=== PATIENT | female | born 1995 | race Caucasian/White ===

== ENCOUNTER 2023-07-22 08:14 | Outpatient (REF) | payer OTHER, SELFPAY ==
--- NOTE | ~2023-07-22 | XR_ITS ---
EXAMINATION: XR HAND, RIGHT CLINICAL INFORMATION: Pain. COMPARISON: None available. TECHNIQUE: PA, lateral, and oblique views of the right hand. FINDINGS: There is a mildly displaced fracture of the proximal aspect of the fourth distal phalanx. No definite intra-articular extension is identified.. Surrounding soft tissue swelling. The remainder of the bones appear unremarkable. Joint space is maintained. XR/XR hand RT min 3V IMPRESSION: Mildly displaced fracture of the proximal aspect of the fourth distal phalanx.
== END 2023-07-22 08:15 | disposition home or self-care (01) ==
LOC: HO.HOSX 08:14
PROVIDERS: Visit Provider Physician Assistant
DX: S62.664B Nondisplaced fracture of distal phalanx of right ring finger, initial encounter for open fracture (principal)
CPT/HCPCS: 73130; 99202

== ENCOUNTER 2023-07-22 10:22 | Outpatient (AMB) | payer OTHER, SELFPAY ==
--- NOTE | 2023-07-22 10:43 | A.OFFVIS_ITS ---
Intake Vital Signs 07/22/23 10:46 Height 5 ft 3 in Weight 160 lb BMI 28.3 Handedness Right Intake Visit Reasons: fc-open fx of rt fourth finger Intake Note: Missy is a 28 year old right hand dominant female who presents today for a evaluation of her right ring finger fx, DOI 07/15/23. Patient reports she was at work and she got her finger stuck in a conveyor belt. She states having constant stabbing pain. Hx of taking NSAIDs and they are not providing her with any relief. Patient reports having ongoing numbness with a stabbing sensation since the injury. Allergies Sulfa (Sulfonamide Antibiotics) [SULFA (SULFONAMIDE ANTIBIOTICS)] Allergy (Unknown, Verified 07/22/23 10:46) hives HPI fc-open fx of rt fourth finger HPI Details 28-year-old right hand dominant female nini dove presents in the office today, as a new patient, for an evaluation of the right 4th digit. Patient sustained an injury while at work on 07/15/2023. She was seen in the [facility] ED where her right 4th digit was splinted. While in the office today the patient reports her finger got stuck in the convveyor belt on 07/15/2023. She reports a constant stabbing pain. She denies relief from NSAIDs. She also claims to having ongoing numbness in the right 4th digit. Patient currently works for [employer]. 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 No ecchymosis, erythema, or edema. Able to perform full finger flexion, extension, abduction, adduction, finger cross, okay sign, and thumbs up without deficit. Able to make a closed fist. Sensation intact. Capillary refill is brisk. Radial pulse intact. Office Procedures Fracture Care Fracture Billing Code: Fracture Billing Code Assessment & Plan Assessment & Plan (1) Fracture of distal phalanx of right ring finger: Onset Date: ~07/15/23 Code(s): S62.634A - Displaced fracture of distal phalanx of right ring finger, initial encounter for closed fracture Qualifiers: Encounter type: initial encounter Fracture alignment: nondisplaced Fracture type: open Qualified Code(s): S62.664B - Nondisplaced fracture of distal phalanx of right ring finger, initial encounter for open fracture (2) Laceration of right ring finger: Onset Date: ~07/15/23 Code(s): S61.214A - Laceration without foreign body of right ring finger without damage to nail, initial encounter Qualifiers: Damage to nail status: unspecified Encounter type: initial encounter Foreign body presence: unspecified Qualified Code(s): S61.214A - Laceration without foreign body of right ring finger without damage to nail, initial encounter Plan Ms. Gant is a 28-year-old right hand dominant female who presents in the office today, as a new patient, for an evaluation of the right 4th digit. Ciro melendrez sustained an injury while at work on 07/15/2023. She was seen in the [facility] ED where her right 4th digit was splinted. While in the office today the patient reports her finger got stuck in the conveyor belt on 07/15/2023. She reports a constant stabbing pain. She denies relief from NSAIDs. She also claims to having ongoing numbness in the right 4th digit. Patient currently works for [employer]. Patient will perform daily dressing changes for the right ring finger with xeroform, gauze, kerramax and coban. She was educated not to get the area wet. She will continue with her oral antibiotic. Follow up will be on Tuesday07/26/[address] Fatima in the office, or sooner if needed. X-rays of the right hand which were obtained while in the office today and were reviewed by me, Stephanie Cook PA-C, revealed a fracture of the right ring finger distal phalanx. Orders: Orders XR hand RT min 3V 07/22/23 M79.643 - Pain in unspecified hand Patient Instructions: Scribed by Amrita Ryder medical and scientific illustrator, for Stephanie Joycecolt STEIN on 07/22/2023 at 10:27 am, EST. Coding Level of Care Code New Pt Level 4 (68721) Diagnoses Open nondisplaced fracture of distal phalanx of right ring finger, initial encounter S62.664B Encounter type: initial encounter Fracture alignment: nondisplaced Fracture type: open Laceration of right ring finger, foreign body presence unspecified, nail damage status unspecified, initial encounter S61.214A Damage to nail status: unspecified Encounter type: initial encounter Foreign body presence: unspecified CPT Codes Fracture Care - Fracture Billing Code: Fracture Billing Code ([id number])
[2023-07-22 10:46] VITALS: BMI 28.3
== END 2023-07-22 12:06 | disposition home or self-care (01) ==
PROVIDERS: PCP Pediatrics; Visit Provider Physician Assistant
DX: S62.664B Nondisplaced fracture of distal phalanx of right ring finger, initial encounter for open fracture (principal); Z04.2 Encounter for examination and observation following work accident
CPT/HCPCS: 99204

== ENCOUNTER 2023-07-26 14:35 | Outpatient (AMB) | payer OTHER, SELFPAY ==
--- NOTE | 2023-07-26 14:40 | A.OFFVIS_ITS ---
Intake Vital Signs 07/26/23 14:46 Height 5 ft 3 in Weight 160 lb BMI 28.3 Intake Visit Reasons: ov-open fx of rt fourth finger Intake Note: Missy is a 28 year old right hand dominant female who presents today for a follow up of her right distal ring finger fx, DOI 07/15/23. Patient reports still having on going pain. Allergies Sulfa (Sulfonamide Antibiotics) [SULFA (SULFONAMIDE ANTIBIOTICS)] Allergy (Unknown, Verified 07/28/23 07:28) hives HPI ov-open fx of rt fourth finger HPI Details 28-year-old right hand dominant female nini dove presents in the office today for a wound check and follow up of the right 4th digit distal phalanx fracture and laceration, which occurred on 07/15/2023. I last saw the patient in the office on 07/22/2023, at that time she instructed to perform daily dressing changes. She was also instructed to continue the oral antibiotics given to her at the ED. While in the office today the patient reports she is still having pain. Patient has two more dose of antibiotics. Patient has an allergy history, as follows: -Sulfa; hives Patient is not currently taking any medication. Patient has no significant medical history. Patient has no known surgical history. 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 -Substance use: Marijuana use [facility] Medical History (Updated 07/28/23 @ 07:53 by Paula Jensen RN) No pertinent past medical history Surgical History (Updated 07/28/23 @ 07:28 by Paula Jensen RN) Hx of section Social History (Updated 07/28/23 @ 09:24 by Lila Vaughan MD) Alcohol intake: never Patient Tobacco Use Status: Never used Tobacco Use of substances other than those prescribed or required for medical reasons: Yes Substance Use Type: Marijuana Substance Use Type Other:: Last use 2 days ago Substance Use Frequency: Occasionally Are you DNR?: No Advance Directives: No Advance Directives Information Provided: Yes Current occupational status: employed 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 Review of Systems Const All systems reviewed & are unremarkable except as noted in HPI and below Physical Exam Vital Signs: BMI result Body Mass Index 28.3 Const General: cooperative, healthy appearing and no acute distress Resp Effort & Inspection: normal respiratory effort and able to speak in complete sentences Cardio Rate: regular rate Peripheral pulses: Peripheral pulses 2+ throughout GI Palpation (GI): Soft to palpation Skin Lesions: no lesions Rashes: no rashes Assessment & Plan Assessment & Plan (1) Fracture of distal phalanx of right ring finger: Onset Date: ~07/15/23 Code(s): S62.634A - Displaced fracture of distal phalanx of right ring finger, initial encounter for closed fracture Qualifiers: Encounter type: subsequent encounter Fracture alignment: nondisplaced Fracture healing: with nonunion Fracture type: open Qualified Code(s): S62.664K - Nondisplaced fracture of distal phalanx of right ring finger, subsequent encounter for fracture with nonunion (2) Laceration of right ring finger: Onset Date: ~07/15/23 Code(s): S61.214A - Laceration without foreign body of right ring finger without damage to nail, initial encounter Qualifiers: Damage to nail status: with damage Encounter type: subsequent encounter Foreign body presence: without foreign body Qualified Code(s): S61.314D - Laceration without foreign body of right ring finger with damage to nail, subsequent encounter Plan Ms. Gant is a 28-year-old right hand dominant female who presents in the office today for a wound check and follow up of the right 4th digit distal phalanx fracture and laceration, which occurred on 07/15/2023. I last saw the patient in the office on 07/22/2023, at that time she instructed to perform daily dressing changes. She was also instructed to continue the oral antibiotics given to her at the ED. While in the office today the patient reports she is still having pain. Patient has two more dose of antibiotics. Patient has an allergy history, as follows: -Sulfa; hives Patient is not currently taking any medication. Patient has no significant medical history. Patient has no known surgical history. 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 Fatima was available to see the patient with me while in the office today and a collaborative treatment plan was made. I discussed in detail the procedure and what to expect pre and post operatively. We discussed the risks, benefits and alternatives to the surgery as well as the rehabilitation course. The risks; which include, but are not limited to infection, bleeding, nerve injury, ongoing pain, swelling, and stiffness, perioperative risk of injury to bones and soft tissues, and blood clots. I have answered all questions and with their understanding they have consented to move forward with a right ring finger removal of nail plate, repair of nail bed, and possible open reduction internal fixation of distal phalanx to be performed by Dr. Moira Fatima. Recommended for the patient to use editable in place of inhaling marijuana. New bandages were placed over the fractured finger. A metal finger splint, off the shelf, was placed on the patient today. Her information was given to the surgical schedulers with a tentative date of 07/28/2023. Follow up will be at the post operative appointment, or sooner if needed. Patient Instructions: Scribed by Amrita Ryder medical social consultant, for Stephanie Cook PA-C on 07/26/2023 at 2:45 pm, EST. Coding Level of Care Code Est Pt Level 4 (89176) Global (34578) Diagnoses Open nondisplaced fracture of distal phalanx of right ring finger with nonunion, subsequent encounter S62.664K Encounter type: subsequent encounter Fracture alignment: nondisplaced Fracture healing: with nonunion Fracture type: open Laceration of right ring finger without foreign body with damage to nail, subsequent encounter S61.314D Damage to nail status: with damage Encounter type: subsequent encounter Foreign body presence: without foreign body
[2023-07-26 14:46] VITALS: BMI 28.3
== END 2023-07-26 15:22 | disposition home or self-care (01) ==
PROVIDERS: PCP Pediatrics; Visit Provider Physician Assistant
DX: S62.66 Nondisplaced fracture of distal phalanx of finger (principal); S61.314D Laceration without foreign body of right ring finger with damage to nail, subsequent encounter
CPT/HCPCS: 99214

== ENCOUNTER → 2023-07-26 14:35 | Outpatient (BNVA) | payer OTHER, SELFPAY | PROVIDERS: PCP Pediatrics; Visit Provider Physician Assistant | DX: S62.66 Nondisplaced fracture of distal phalanx of finger (principal); S61.314D Laceration without foreign body of right ring finger with damage to nail, subsequent encounter | CPT/HCPCS: 99212 ==

== ENCOUNTER 2023-07-28 07:15 | Day surgery (SDC) | payer OTHER, SELFPAY ==
[2023-07-28] VITALS (7 sets, daily range): BP systolic 93–112; BP diastolic 54–76; PULSE 53–71; RESP 15–20; TEMP 36.1–36.6; O2SAT 98–100; BMI 28.4
--- NOTE | ~2023-07-28 | FL_ITS ---
EXAMINATION: XR FLUOROSCOPY WITH IMAGES CLINICAL INFORMATION: ORIF fracture of the right fourth distal phalanx. COMPARISON: Radiographs dated 07/22/2023. TECHNIQUE: Fluoroscopy Supervised By: Dr. Moira Fatima. Fluoroscopy Time: 24.32 seconds. Cumulative Dose: 0.4778 mGy. DAP: 0.0289 Gycm2. Images: 4. FINDINGS: The submitted images show a fixator pin transfixing a fracture of the base of the right fourth distal phalanx. There is improvement in bony alignment. The fixator pin traverses the fourth distal interphalangeal joint. FL/FL guidance in OR IMPRESSION: Intraoperative fluoroscopic guidance is provided during ORIF of the right fourth distal phalanx. Please see the patient's Operative Report for full procedural details.
[2023-07-28 07:35] LABS: UPreg QC Valid YES; Urine Pregnancy NEGATIVE (NEGATIVE)
[2023-07-28] MEDS: Lactated Ringers 1,000 ML 50 ML IVCONT (07:58)
--- NOTE | 2023-07-28 07:58 | MHC.SHP ---
Pre-Procedural Eval Section A - 24 Hr Update-Section A only Date of Service: 07/28/23 The patient is an INPATIENT: No Changes since office visit: No Cold of Flu in the past 2 weeks, No New Medical Problems, No Changes in Medication and No Patient answered all questions The patient has been examined within 24 hours of the surgical procedure. The History & Physical has been completed within 30 days and I have reviewed it.: Yes Section B - Complete if H&P > 30 days Chief Complaint: nondisplaced fx distal,laceration w/ foreign body Details of Present Illness: Right ring finger fracture with nail bed injury Allergies: Allergies Allergy/AdvReac Type Severity Reaction Status Date / Time Sulfa (Sulfonamide Allergy Unknown hives Verified 07/28/23 07:28 Antibiotics) [SULFA (SULFONAMIDE ANTIBIOTICS)] Plan I have reviewed the history and physical and performed a pertinent physical examination on my patient. No changes have occurred unless specified. Time Spent With Patient Time: Total time managing care of this patient today ____ minutes.
--- NOTE | 2023-07-28 07:59 | P.OP_ITS ---
Operative Note Operative Note Date of Service: 07/28/23 Narrative: Operative Note Narrative: Preop diagnosis: 1. Right ring finger open distal phalanx fracture with displacement 2. Right ring finger nail bed injury Postop diagnosis: Same Procedure: 1. Right ring finger open reduction internal fixation 2. Right ring finger I and D of open distal phalanx fracture 3. Right ring finger nail plate removal 4. . Right ring finger nail bed repair Surgeon: Moira Fatima MD Anesthesia: General Anesthesia Findings: Open distal phalanx fracture at the proximal aspect of the distal phalanx. Anatomically this was essentially at the level of the eponychial fold. She had an acrylic nail attached to the nail, and the nail itself was pulled out from the eponychial fold, thus holding the fracture open and displaced. Implants: 0.045 K-wire x1 Tourniquet time: 0 minutes EBL: 5.0 ml Specimen: None Drains: None Complications: None Disposition: Brought to the recovery room in stable condition Plan: She was given a 1 week supply of oral Augmentin because of the open fracture. Follow-up in 10-14 days for wound check, suture removal and to check pathology Indications: The patient is a 28 year old woman with an open fracture of the right ring finger distal phalanx with a nail bed injury and displaced nail plate . The risks and benefits of operative treatment, including but not limited to risk of damage to blood vessels, nerves, tendons, infection, recurrence, persistent pain or numbness, incomplete resolution of preoperative symptoms, or need for further surgery were discussed with the patient and they wished to proceed with surgery. Procedure: Once consent was obtained patient was brought back to the operating suite and placed in the operating table in a supine position. . Perioperative antibiotics and anesthesia was administered by the anesthesia team. A tourniquet was applied to the proximal aspect of the right upper extremity and the limb was prepped and draped in a standard surgical fashion. The tourniquet was not inflated during the case. A Oberlin elevator was used to remove the nail plate from the underlying nail bed. The acrylic nail was cut short and the nail was placed in some Betadine for later use. She had a proximal fracture at the proximal aspect of the right ring finger distal phalanx. The fracture was essentially at the level of the eponychial fold. The acrylic nail help create a moment arm that held the fracture displaced, and the proximal aspect of the nail plate out from under the eponychial fold. Removal of the nail plate then showed a laceration of the proximal aspect of the germinal matrix at about the level of the eponychial fold. The open fracture was also appreciated. I 1st started with an I&D of the open fracture. I used a small curette to help clean out the fracture. The fracture itself was then irrigated copiously with normal saline using an Angiocath and a 10 mL syringe. I then performed my open reduction of the fracture and placed a 0.045 K-wire retrograde through the tip of the distal phalanx. This was advanced retrograde across the fracture and then across the D IP joint and placed down to the base of the middle phalanx. I was very satisfied with our fracture reduction and placement of this implant on multiple fluoroscopic images. The nail germinal matrix was then reapproximated beneath the eponychial fold. I then placed the cleaned nail plate over the nail bed and tucked it beneath the eponychial fold to help hold the nail bed laceration in a reduced position. The nail plate was secured using 5 0 Prolene suture. The K- wire was bent cut short had a pin cap applied. A sterile dressing and a volar finger splint were also applied. A digital block was performed using some 0.5% plain ropivacaine for postop pain control. The patient appears to have tolerated the procedure well and with no complications. All digits were well vascularized conclusion of the case.
--- NOTE | 2023-07-28 08:29 | P.CONAN_ITS ---
Documented by User: Lila Vaughan MD 07/28/23 09:24 HPI - Anesthesia Eval Consult details Narrative: 28 yo female patient for Right ring 94th finger) fracture ORIF and repair of nail bed [facility] Past Medical History Medical History (Updated 07/28/23 @ 07:53 by Paula Jensen, RN) No pertinent past medical history Family History Family history of problems with anesthesia: No Surgical History Surgical History (Updated 07/28/23 @ 07:28 by Paula Jensen, RN) Hx of section History of Problems with Anesthesia: No Social History Social History (Updated 07/28/23 @ 09:24 by Lila Vaughan MD) Alcohol intake: never Patient Tobacco Use Status: Never used Tobacco Substance Use Type: Marijuana Current occupational status: employed 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 Meds Allergies Allergy/AdvReac Type Severity Reaction Status Date / Time Sulfa (Sulfonamide Allergy Unknown hives Verified 07/28/23 07:28 Antibiotics) [SULFA (SULFONAMIDE ANTIBIOTICS)] Home Medications ?Medication ?Instructions ?Recorded ?Confirmed ?Last Taken ?Type No Known Home Meds 07/22/23 07/28/23 Unknown History Exam Airway Mallampati Class: II TM Dist: >3cm Neck ROM: Full Loose/Missing/Broken Teeth: No (Denies broken, loose, missing teeth) Heart: RRR Lungs: CTAB Assessment and Plan Assessment Anesthesia Assessment: Anesthesia Plan Discussed and Chart Reviewed Final Anesthetic Review Family History of Problems with Anesthesia: No History of Problems with Anesthesia: No NPO: Yes ASA Class: II Final Preanesthetic Review: No Changes in Pt Med Stat, Meds/Allgs Chart Reviewed, Consent Obtained/Reviewed and Anes Risks/Benef Reviewed Patient Risk: Low Procedure Risk: Low Assessment/Block/Sedation in SS: Assess/Block/Sedation-SS Anesthetic Plan Anesthetic Plan: GA Disposition: Standard PACU Documented by User: Gustavo Welsh MD [facility] Active Problems Active Problems: All Active Problems Laceration of right ring finger (Acute ~07/15/23) Fracture of distal phalanx of right ring finger (Acute ~07/15/23) Past Medical History Medical History (Updated 07/28/23 @ 07:53 by Paula Jensen RN) No pertinent past medical history Surgical History Surgical History (Updated 07/28/23 @ 07:28 by Paula Jensen RN) Hx of section Social History Social History (Updated 07/28/23 @ 09:24 by Lila Vaughan MD) Alcohol intake: never Patient Tobacco Use Status: Never used Tobacco Substance Use Type: Marijuana Current occupational status: employed 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 Meds Allergies Allergy/AdvReac Type Severity Reaction Status Date / Time Sulfa (Sulfonamide Allergy Unknown hives Verified 07/28/23 07:28 Antibiotics) [SULFA (SULFONAMIDE ANTIBIOTICS)] Active Medications: Current Medications Fentanyl (Fentanyl Citrate/Pf 100 Mcg/2 Ml Vial) 25 mcg IVPUSH Q5M PRN; Protocol PRN Reason: Pain, Moderate(Pain Scale 4-6) Stop: 07/28/23 14:13 Lactated Ringer's (Lr) 1,000 mls @ 50 mls/hr IVCONT .Q20H IMANI Last Admin: 07/28/23 07:58 Dose: 50 mls/hr Ondansetron HCl (Ondansetron Hcl 4 Mg/2 Ml Vial) 4 mg IVPUSH ONCE PRN PRN Reason: Nausea and Vomiting Stop: 07/28/23 14:14 Oxycodone HCl (Oxycodone Hcl Immed Release 5 Mg Tablet) 5 mg PO ONCE PRN PRN Reason: Pain, Severe (Pain Scale 7-10) Stop: 07/28/23 14:14 Home Medications ?Medication ?Instructions ?Recorded ?Confirmed ?Last Taken ?Type No Known Home Meds 07/22/23 07/28/23 Unknown History Exam Height,Weight and Vital Signs: Height 5 ft 3 in Weight 72.665 kg Last Vital Signs Temp 97.7 F 07/28/23 07:40 Pulse 67 07/28/23 07:40 Resp 15 07/28/23 07:40 BP 112/76 07/28/23 07:40 Pulse Ox 98 07/28/23 07:40 O2 Del Method Room Air 07/28/23 07:40 Pertinent Lab Results Pertinent Lab Results: Laboratory Tests 07/28/23 07:30 Urine Test NEGATIVE
[2023-07-28] MEDS: oxyCODONE HCl Immed Release 5 MG TABLET PO (11:51)
== END 2023-07-28 12:20 | disposition home or self-care (01) ==
PROVIDERS: Anesthesiology; Visit Provider Orthopaedic Surgery
PROC: (CPT 26765; principal; 2023-07-28 09:30)
DX: S62.634B Displaced fracture of distal phalanx of right ring finger, initial encounter for open fracture (principal); L60.1 Onycholysis; M79.641 Pain in right hand; R20.0 Anesthesia of skin; W31.89XA Contact with other specified machinery, initial encounter; Y93.89 Activity, other specified; Y92.62 Dock or shipyard as the place of occurrence of the external cause; Y99.0 Civilian activity done for income or pay; Z88.2 Allergy status to sulfonamides
CPT/HCPCS: 26765; 11760; 11730; 81025; J0690; J1100; J2250; J2405; J2704; J2795; J3010

== ENCOUNTER → 2023-07-28 07:15 | Outpatient (BNV) | payer OTHER, SELFPAY | PROVIDERS: Visit Provider Orthopaedic Surgery | DX: S62.634B Displaced fracture of distal phalanx of right ring finger, initial encounter for open fracture (principal) | CPT/HCPCS: 11730; 26746 ==

== ENCOUNTER 2023-08-10 10:01 | Outpatient (REF) | payer OTHER, SELFPAY ==
--- NOTE | ~2023-08-10 | XR_ITS ---
EXAMINATION: XR HAND, RIGHT CLINICAL INFORMATION: Pain in right hand. COMPARISON: 07/28/2023, 07/22/2023. TECHNIQUE: PA, lateral, and oblique views of the right hand. FINDINGS: Redemonstration of fixator pin transfixing previously identified fracture of the base of the fourth distal phalanx. Hardware appears intact. Improved alignment. Soft tissue swelling fourth digit. XR/XR hand RT min 3V IMPRESSION: Redemonstration of fixator pin transfixing previously identified fracture of the base of the fourth distal phalanx. Hardware appears intact. Improved alignment.
== END 2023-08-10 10:02 | disposition home or self-care (01) ==
LOC: HO.HOSX 10:01
PROVIDERS: Visit Provider Orthopaedic Surgery
DX: M79.641 Pain in right hand (principal); S62.664D Nondisplaced fracture of distal phalanx of right ring finger, subsequent encounter for fracture with routine healing; S69.91XD Unspecified injury of right wrist, hand and finger(s), subsequent encounter; X58.XXXD Exposure to other specified factors, subsequent encounter; Z98.890 Other specified postprocedural states
CPT/HCPCS: 73130; 99212

== ENCOUNTER 2023-08-10 15:17 | Outpatient (AMB) | payer OTHER, SELFPAY ==
--- NOTE | 2023-08-10 15:35 | MHC.OFFVIS ---
Intake Visit Reasons: PO RT RF ORIF remove nail plate 07/28/23 AR Intake Note: Missy 28 yr old female presents today for a p/o visit for her right RF ORIF nail plate removal from 07/28/23. States she has very minimal pain. DRessing removed and xrays update. Allergies Sulfa (Sulfonamide Antibiotics) [SULFA (SULFONAMIDE ANTIBIOTICS)] Allergy (Unknown, Verified 08/10/23 15:50) hives HPI HPI PO RT RF ORIF remove nail plate 07/28/23 AR: Details: Missy is a 28 year old right hand dominant woman who returns to discuss her right ring finger open distal phalanx fracture, with nail bed injury, S/P ORIF, I&D of open fracture, nail plate removal, & nail bed repair, DOS: 07/28/23. She injured her finger at work, when her finger was caught in a conveyor belt, DOI: 07/15/23. She says she is doing well overall. She denies any pain currently but says she occasionally feels a burning pain, accompanied by throbbing, intermittently throughout the day. She says this occurs sporadically, and lasts for ~10 minutes before resolving. She has completed her course of Abx as instructed. 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 Satisfactory clinical alignment The nail plate is being held beneath the eponychial fold with some sutures. There was to be stable. We went through some gentle range of motion and she was able to flex and extend at the MCP and PIP joints bring her fingers almost to a fist and back into extension. Full range of motion of the small finger. Cap refill is brisk Radiographs: 3 views of the right hand, with attention to the ring finger, were taken and viewed by me today in clinic. They show a ring finger distal phalanx fracture with satisfactory fracture alignment and position of single K-wire. Psych Appearance: grossly normal Affect: normal affect Attitude: cooperative Assessment & Plan Assessment & Plan (1) Fracture of distal phalanx of right ring finger: Onset Date: ~07/15/23 Code(s): S62.634A - Displaced fracture of distal phalanx of right ring finger, initial encounter for closed fracture Category: Medical Qualifiers: Encounter type: subsequent encounter Fracture alignment: nondisplaced Fracture healing: with nonunion Fracture type: open Qualified Code(s): S62.664K - Nondisplaced fracture of distal phalanx of right ring finger, subsequent encounter for fracture with nonunion (2) Injury of nail bed of finger of right hand: Comment: Ring Code(s): S69.91XA - Unspecified injury of right wrist, hand and finger(s), initial encounter Category: Medical Plan Assessment & Plan: 1. Right ring finger open distal phalanx fracture, S/P I&D & ORIF DOS: 07/28/23 2. Right ring finger nailbed injury, S/P removal of nail plate and repair of nail bed DOS: 07/28/23 This is a work-related injury, DOI: 07/15/23 The patient appears to be doing well post-operatively I educated her about the post-operative course I explained the signs and symptoms of infection, if the patient develops any new or worsening erythema, drainage, pain, or warmth they should contact the clinic or attend the ED. She was fitted for an ulnar gutter splint, to be worn like a cast for the next 2 weeks. She should cover this when in the shower I discussed activity modifications, she is to lift nothing heavier than a cellphone for the next 4 weeks weeks She will follow up in 2 weeks, with X-rays 3V attn R RF. Anticipate K-wire removal at this time, depending on healing. Also removal of sutures holding the nail plate in place. Scribed for Moira Fatima MD by carmelo Peterson scribe, on 08/10/23 at 3:45 PM, EST. Orders: Orders XR hand RT min 3V Today M79.641 - Pain in right hand Coding Level of Care Code Global (68963) Diagnoses Open nondisplaced fracture of distal phalanx of right ring finger with nonunion, subsequent encounter S62.664K Encounter type: subsequent encounter Fracture alignment: nondisplaced Fracture healing: with nonunion Fracture type: open Injury of nail bed of finger of right hand S69.91XA
== END 2023-08-10 16:24 | disposition home or self-care (01) ==
PROVIDERS: PCP Pediatrics; Visit Provider Orthopaedic Surgery
DX: S62.66 Nondisplaced fracture of distal phalanx of finger (principal); S69.91XA Unspecified injury of right wrist, hand and finger(s), initial encounter
CPT/HCPCS: 99024

== ENCOUNTER 2023-08-12 10:14 | Outpatient (AMB) | payer OTHER, SELFPAY ==
--- NOTE | 2023-08-12 10:17 | MHC.OFFVIS ---
Intake Visit Reasons: po- Cast re- placement Intake Note: Missy 28 yr old female presents today for a p/o visit for her right RF ORIF nail plate removal from 07/28/23. States that her splint was tight. Patient expresses that the splint was applying a lot of pressure in her nail. Allergies Sulfa (Sulfonamide Antibiotics) [SULFA (SULFONAMIDE ANTIBIOTICS)] Allergy (Unknown, Verified 08/12/23 10:19) hives HPI HPI po- Cast re- placement: Details: 28-year-old right hand dominant female who presents in the office today for a cast change; 15 days status post right ring finger ORIF, I&D of open distal phalanx fracture, nail plate removal, and nail bed repair, which was performed on 07/28/[address] Fatima. She was last seen in the office on 08/10/[address] Fatima. While in the office today the patient reports the splint was tight and applying pressure on her nail. 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 No surrounding erythema or drainage. No signs of infection. NVI. Office Procedures Casting/Splints [id number] Splint application Procedure code (CPT) selection complete Assessment & Plan Assessment & Plan (1) Fracture of distal phalanx of right ring finger: Onset Date: ~07/15/23 Code(s): S62.634A - Displaced fracture of distal phalanx of right ring finger, initial encounter for closed fracture Category: Medical Qualifiers: Encounter type: subsequent encounter Fracture alignment: nondisplaced Fracture healing: with nonunion Fracture type: open Qualified Code(s): S62.664K - Nondisplaced fracture of distal phalanx of right ring finger, subsequent encounter for fracture with nonunion (2) Injury of nail bed of finger of right hand: Comment: Ring Code(s): S69.91XA - Unspecified injury of right wrist, hand and finger(s), initial encounter Category: Medical Qualifiers: Encounter type: subsequent encounter Qualified Code(s): S69.91XD - Unspecified injury of right wrist, hand and finger(s), subsequent encounter Plan Ms. Gant is a 28-year-old right hand dominant female who presents in the office today for a cast change; 15 days status post right ring finger ORIF, I&D of open distal phalanx fracture, nail plate removal, and nail bed repair, which was performed on 07/28/[address] Fatima. She was last seen in the office on 08/10/[address] Fatima. While in the office today the patient reports the splint was tight and applying pressure on her nail. Patient was placed in a new custom-made finger splint in the office today. Follow up will be at her regularly scheduled appointment. Patient Instructions: Scribed by Amrita Ryder medical center director, for Stephanie Danielsshilpa STEIN on at 10:22 am, EST. Coding Level of Care Code Global (04326) Diagnoses Open nondisplaced fracture of distal phalanx of right ring finger with nonunion, subsequent encounter S62.664K Encounter type: subsequent encounter Fracture alignment: nondisplaced Fracture healing: with nonunion Fracture type: open Injury of nail bed of finger of right hand, subsequent encounter S69.91XD Encounter type: subsequent encounter CPT Codes Splint - CPT: 59327-Xszqol Splint application ([id number])
== END 2023-08-12 10:48 | disposition home or self-care (01) ==
PROVIDERS: Visit Provider Physician Assistant
DX: S62.66 Nondisplaced fracture of distal phalanx of finger (principal); S69.91XD Unspecified injury of right wrist, hand and finger(s), subsequent encounter
CPT/HCPCS: 29130; 99024

== ENCOUNTER → 2023-08-12 10:14 | Outpatient (BNVA) | payer OTHER, SELFPAY | PROVIDERS: Visit Provider Physician Assistant | DX: S62.66 Nondisplaced fracture of distal phalanx of finger (principal); S69.91XD Unspecified injury of right wrist, hand and finger(s), subsequent encounter | CPT/HCPCS: 29130; 99212 ==

== ENCOUNTER 2023-08-19 10:23 | Outpatient (REF) | payer OTHER, SELFPAY ==
--- NOTE | ~2023-08-19 | XR_ITS ---
EXAMINATION: XR HAND, RIGHT CLINICAL INFORMATION: Pain in right hand COMPARISON: Right hand 08/10/2023 TECHNIQUE: PA, lateral, and oblique views of the right hand. FINDINGS: Fixator pin transfixing previously identified fracture the base of the fourth distal phalanx is again seen. No change in position or alignment of the fixator pin and fracture fragments. Hardware appears intact. Otherwise, the bones are intact. Joint spaces are within normal limits. XR/XR hand RT min 3V IMPRESSION: No change in position or alignment of the fracture of the base of the fourth distal phalanx. No hardware complication.
== END 2023-08-19 10:24 | disposition home or self-care (01) ==
LOC: HO.HOSX 10:23
PROVIDERS: Visit Provider Physician Assistant
DX: S62.634A Displaced fracture of distal phalanx of right ring finger, initial encounter for closed fracture (principal); S69.91XA Unspecified injury of right wrist, hand and finger(s), initial encounter
CPT/HCPCS: 73130; 99212

== ENCOUNTER 2023-08-19 10:23 | Outpatient (AMB) | payer OTHER, SELFPAY ==
--- NOTE | 2023-08-19 10:42 | A.OFFVIS_ITS ---
Intake Visit Reasons: PO RT RF ORIF remove nail plate 07/28/23 AR Intake Note: Missy is a 28 year old female who presents for a post operative wound check of the Right ring finger. Patient report she can feel something moving in the cast and has some pain and throbbing. Allergies Sulfa (Sulfonamide Antibiotics) [SULFA (SULFONAMIDE ANTIBIOTICS)] Allergy (Unknown, Verified 08/24/23 10:43) hives HPI HPI PO RT RF ORIF remove nail plate 07/28/23 AR: Details: 28-year-old female who returns to the office today for post-op right ring finger ORIF, 07/28/[address] Fatima. She continues to have throbbing pain in her finger however she is doing well otherwise. She also reports she can feel something moving in the cast. She has no other concerns. 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 No drainage. Sensation intact. Office Procedures Casting/Splints [id number] Splint application Procedure code (CPT) selection complete Results Reviewed Results Reviewed: Xrays were obtained in the office today and personally reviewed by me of the right hand show intact pin Assessment & Plan Assessment & Plan (1) Fracture of distal phalanx of right ring finger: Onset Date: ~07/15/23 Code(s): S62.634A - Displaced fracture of distal phalanx of right ring finger, initial e ncounter for closed fracture Category: Medical Qualifiers: Encounter type: subsequent encounter Fracture alignment: nondisplaced Fracture healing: with nonunion Fracture type: open Qualified Code(s): S62.664K - Nondisplaced fracture of distal phalanx of right ring finger, subsequent encounter for fracture with nonunion (2) Injury of nail bed of finger of right hand: Comment: Ring Code(s): S69.91XA - Unspecified injury of right wrist, hand and finger(s), initial enco unter Category: Medical Qualifiers: Encounter type: subsequent encounter Qualified Code(s): S69.91XD - Unspecified injury of right wrist, hand and finger(s), subsequent encounter Plan Pin site was cleaned and she was placed back in an ulnar gutter splint. She will refrain from any activities or use of her right hand and see me back for her routine post-op appointment on August [address] Fatima, sooner if needed. Orders: Orders XR hand RT min 3V 08/19/23 M79.641 - Pain in right hand Patient Instructions: Scribed for Kait Whittaker PA-C, by Олег Garcia medical records library professor, on 08/19/2023 at 10:15 AM EST. I, Kait Whittaker PA-C, have personally reviewed and agree with the information entered by the scribe. Coding Level of Care Code Global (68365) Diagnoses Open nondisplaced fracture of distal phalanx of right ring finger with nonunion, subsequent encounter S62.664K Encounter type: subsequent encounter Fracture alignment: nondisplaced Fracture healing: with nonunion Fracture type: open Injury of nail bed of finger of right hand, subsequent encounter S69.91XD Encounter type: subsequent encounter CPT Codes Splint - CPT: 31579-[id number] Splint application ([id number])
== END 2023-08-19 11:48 | disposition home or self-care (01) ==
PROVIDERS: Visit Provider Physician Assistant
DX: S62.66 Nondisplaced fracture of distal phalanx of finger (principal); S69.91XD Unspecified injury of right wrist, hand and finger(s), subsequent encounter
CPT/HCPCS: 29125; 99024

== ENCOUNTER 2023-08-24 10:20 | Outpatient (AMB) | payer OTHER, SELFPAY ==
--- NOTE | 2023-08-24 10:42 | A.OFFVIS_ITS ---
Intake Visit Reasons: PO RT RF ORIF remove nail plate 07/28/23 AR Intake Note: Missy 28 yr old female presents today for a p/o visit for her right RF ORIF nail plate removal from 07/28/23. Xrays updated in office. Allergies Sulfa (Sulfonamide Antibiotics) [SULFA (SULFONAMIDE ANTIBIOTICS)] Allergy (Unknown, Verified 08/24/23 10:43) hives HPI HPI PO RT RF ORIF remove nail plate 07/28/23 AR: Details: Missy is a 28 year old right hand dominant woman who returns to discuss her right ring finger open distal phalanx fracture, with nail bed injury, S/P ORIF, I&D of open fracture, nail plate removal, & nail bed repair, DOS: 07/28/23. She injured her finger at work, when her finger was caught in a conveyor belt, DOI: 07/15/23. She says she is doing well overall, and denies any pain. She is somewhat apprehensive about having her K-wire removed. She denies any numbness or tingling. She was seen by LIZ Brown on 08/12/23 with complaints of pain and splint tightness. She was seen by LIZ Carballo on 08/19/23 with complaints of pain and feeling something in my cast . Her pin-site was cleaned and she was placed back into a splint at this appointment. 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 Sutures removed and Steri-strips applied K-wire removed today in clinic, which she tolerated well Satisfactory clinical alignment Fracture site is completely non-tender Nail plate in place She can flex the ring finger MCP & PIP joint, and bring it closed to a weak fist Full range of motion of the small finger. Cap refill is brisk Radiographs: 3 views of the right hand, with attention to the ring finger, were taken and viewed by me today in clinic. They show a ring finger distal phalanx fracture with satisfactory fracture alignment and position of single K-wire. Psych Appearance: grossly normal Affect: normal affect Attitude: cooperative Assessment & Plan Assessment & Plan (1) Fracture of distal phalanx of right ring finger: Onset Date: ~07/15/23 Code(s): S62.634A - Displaced fracture of distal phalanx of right ring finger, initial encounter for closed fracture Category: Medical Qualifiers: Encounter type: subsequent encounter Fracture alignment: nondisplaced Fracture healing: with nonunion Fracture type: open Qualified Code(s): S62.664K - Nondisplaced fracture of distal phalanx of right ring finger, subsequent encounter for fracture with nonunion (2) Injury of nail bed of finger of right hand: Comment: Ring Code(s): S69.91XA - Unspecified injury of right wrist, hand and finger(s), initial encounter Category: Medical Qualifiers: Encounter type: subsequent encounter Qualified Code(s): S69.91XD - Unspecified injury of right wrist, hand and finger(s), subsequent encounter Plan Assessment & Plan: 1. Right ring finger open distal phalanx fracture, S/P I&D & ORIF DOS: 07/28/23 2. Right ring finger nailbed injury, S/P removal of nail plate and repair of nail bed DOS: 07/28/23 This is a work-related injury, DOI: 07/15/23 K-wire removed: 08/24/23 The patient appears to be doing well post-operatively I educated her about the post-operative course She will discontinue her splint at this time I discussed activity modifications, she is to lift nothing heavier than a cellphone for the next 2 weeks weeks She will work on ROM exercises at home She was given a note for work to return to work 08/29/23 on light duty, with a 2lb weight limit for the next 4 weeks. 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 She will contact the clinic in the next few weeks if she wants a referral to OT hand therapy She will follow up in 4 weeks for a ROM check and discuss work restrictions Scribed for Moira Fatima MD by Mckay Todd, medical operations supervisor, on 08/24/23 at 11:00 AM, EST. Orders: Orders XR hand RT min 3V Today M79.641 - Pain in right hand Coding Level of Care Code Global (14650) Diagnoses Open nondisplaced fracture of distal phalanx of right ring finger with nonunion, subsequent encounter S62.664K Encounter type: subsequent encounter Fracture alignment: nondisplaced Fracture healing: with nonunion Fracture type: open Injury of nail bed of finger of right hand, subsequent encounter S69.91XD Encounter type: subsequent encounter
== END 2023-08-24 11:18 | disposition home or self-care (01) ==
PROVIDERS: Visit Provider Orthopaedic Surgery
DX: S62.66 Nondisplaced fracture of distal phalanx of finger (principal); S69.91XD Unspecified injury of right wrist, hand and finger(s), subsequent encounter
CPT/HCPCS: 99024

== ENCOUNTER 2023-08-24 13:20 | Outpatient (REF) | payer OTHER, SELFPAY ==
--- NOTE | ~2023-08-24 | XR_ITS ---
EXAMINATION: XR HAND, RIGHT CLINICAL INFORMATION: Pain in right hand COMPARISON: Right hand 08/19/2023 TECHNIQUE: PA, lateral, and oblique views of the right hand. FINDINGS: 680 pain transfixing previously identified fracture of the base of the fourth distal phalanx is again seen. No change in position or alignment of the fixator pin and fracture fragments. Hardware appears intact. Otherwise, the bones are intact. Joint spaces are within normal limits. XR/XR hand RT min 3V IMPRESSION: No change in position or alignment of the fracture of the base of the fourth distal phalanx. No hardware complication.
== END 2023-08-24 13:21 | disposition home or self-care (01) ==
LOC: HO.HOSX 13:20
PROVIDERS: Visit Provider Orthopaedic Surgery
DX: S62.66 Nondisplaced fracture of distal phalanx of finger (principal)
CPT/HCPCS: 73130; 99212

== ENCOUNTER 2023-09-21 09:19 | Outpatient (REF) | payer OTHER, SELFPAY ==
--- NOTE | ~2023-09-21 | XR_ITS ---
EXAMINATION: XR HAND, RIGHT CLINICAL INFORMATION: Right hand pain. COMPARISON: 08/24/2023 TECHNIQUE: PA, lateral, and oblique views of the right hand. FINDINGS: There is a ghost tract from previously seen pin through the distal and middle phalanges of the fourth digit. There is a defect in the cortex of the dorsal proximal distal phalanx similar to prior. XR/XR hand RT min 3V IMPRESSION: Postsurgical changes fourth digit. No acute finding.
== END 2023-09-21 09:20 | disposition home or self-care (01) ==
LOC: HO.HOSX 09:19
PROVIDERS: Visit Provider Orthopaedic Surgery
DX: S69.91XD Unspecified injury of right wrist, hand and finger(s), subsequent encounter (principal)
CPT/HCPCS: 73130; 99212

== ENCOUNTER 2023-09-21 09:27 | Outpatient (AMB) | payer OTHER, SELFPAY ==
--- NOTE | 2023-09-21 09:42 | A.OFFVIS_ITS ---
Intake Visit Reasons: PO-RT RF ORIF remove nail plate 07/28/23 AR Intake Note: Missy 28 yr old female presents today for a p/o visit for her ROM check for her right RF ORIF nail plate removal from 07/28/23. Patient reports that she is doing well with no concerns. Allergies Sulfa (Sulfonamide Antibiotics) [SULFA (SULFONAMIDE ANTIBIOTICS)] Allergy (Unknown, Verified 09/21/23 09:43) hives HPI HPI PO-RT RF ORIF remove nail plate 07/28/23 AR: Details: Missy is a 28 year old right hand dominant woman who returns to discuss her right ring finger open distal phalanx fracture, with nail bed injury, S/P ORIF, I&D of open fracture, nail plate removal, & nail bed repair, DOS: 07/28/23. She is here for a ROM check. She injured her finger at work, when her finger was caught in a conveyor belt, DOI: 07/15/23. She says she is doing well overall, and denies any pain. Patient asks if her nail will grow back normally, as there is currently a large bump in the nail of her right ring finger. She denies any numbness or tingling, and has no complaints today. She would like to know when she can return to work at full duty. 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 Satisfactory clinical alignment Fracture site is completely non-tender Nail plate in place and her nail is growing in She can make a fist and extend all her digits Full wrist ROM, without pain Cap refill is brisk Radiographs: Three views of the right hand were taken today and reviewed by me in clinic. They show satisfactory fracture alignment of the right ring finger distal phalanx with good evidence of interval bony healing Psych Appearance: grossly normal Affect: normal affect Attitude: cooperative Assessment & Plan Assessment & Plan (1) Fracture of distal phalanx of right ring finger: Onset Date: ~07/15/23 Code(s): S62.634A - Displaced fracture of distal phalanx of right ring finger, initial encounter for closed fracture Category: Medical Qualifiers: Encounter type: subsequent encounter Fracture alignment: nondisplaced Fracture healing: with nonunion Fracture type: open Qualified Code(s): S62.664K - Nondisplaced fracture of distal phalanx of right ring finger, subsequent encounter for fracture with nonunion (2) Injury of nail bed of finger of right hand: Comment: Ring Code(s): S69.91XA - Unspecified injury of right wrist, hand and finger(s), initial encounter Category: Medical Qualifiers: Encounter type: subsequent encounter Qualified Code(s): S69.91XD - Unspecified injury of right wrist, hand and finger(s), subsequent encounter Plan Assessment & Plan: 1. Right ring finger open distal phalanx fracture, S/P I&D & ORIF DOS: 07/28/23 2. Right ring finger nailbed injury, S/P removal of nail plate and repair of nail bed DOS: 07/28/23 This is a work-related injury, DOI: 07/15/23 K-wire removed: 08/24/23 The patient appears to be doing well post-operatively I educated her about the post-operative course I discussed activity modifications, she is to use her hand for lightweight activities and increase her weight limit, as tolerated She will continue to work on ROM exercises at home The patient is interested in returning back to work at full duty. She was given a note for work to return to full duty today, 09/21/23. 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 She can follow up prn Scribed for Moira Fatima MD by Mckay Todd, healthcare or medical, on 09/21/23 at 10:00 AM, EST. Orders: Orders XR hand RT min 3V Today M79.641 - Pain in right hand Coding Level of Care Code Global (12578) Diagnoses Open nondisplaced fracture of distal phalanx of right ring finger with nonunion, subsequent encounter S62.664K Encounter type: subsequent encounter Fracture alignment: nondisplaced Fracture healing: with nonunion Fracture type: open Injury of nail bed of finger of right hand, subsequent encounter S69.91XD Encounter type: subsequent encounter
== END 2023-09-21 10:46 | disposition home or self-care (01) ==
PROVIDERS: Visit Provider Orthopaedic Surgery
DX: S62.66 Nondisplaced fracture of distal phalanx of finger (principal); S69.91XD Unspecified injury of right wrist, hand and finger(s), subsequent encounter
CPT/HCPCS: 99024